=== PATIENT | male | born 1965 | race Caucasian/White ===

== ENCOUNTER 2021-01-31 08:54 | Emergency (ER) | payer SELFPAY ==
[2021-01-31 09:06] VITALS: BP 129/84; PULSE 65; RESP 18; TEMP 36.8; O2SAT 96
--- NOTE | 2021-01-31 09:07 | W.ED.EXTPRO ---
HPI - Extremity Problem General: Chief complaint: Extremity Problem,Nontraumatic Stated complaint: Knee Pain Time Seen by Provider: 01/31/21 08:58 Source: patient Mode of arrival: ambulatory Limitations: no limitations History of Present Illness: HPI Narrative: Patient is a 56-year-old male who presents to ED today for evaluation of right knee pain and swelling. Patient states knee started to bother him approximately 3 to 4 days ago. He thinks maybe he tweaked it . He has no obvious known injury or trauma. He does tell me he has a history of bad knees stating he has arthritis. He has not noticed any redness or warmth to the joint. He has no leg or calf swelling or pain. MD Complaint: joint swelling and joint pain Onset (ago): day(s) Pain Consistency: constant Location: right and knee Quality: constant Radiation: none Relieving factors: immobilization Exacerbating factors: range of motion, weight bearing and walking Associated symptoms: Reports no associated symptoms; Deny chest pain, fever(s) or rash Review of Systems Const: Denies: fever(s), chills or body aches Card: Denies: chest pain Resp: Denies: dyspnea Musc: Reports: joint pain (R knee) and joint swelling (R knee); Denies: neck pain, back pain, extremity pain, extremity swelling, joint redness, joint warmth or muscle weakness Skin/Breast: Denies: rash, erythema or new lesions Neuro: Denies: numbness in extremities or sensory changes [facility] ED PFSH: Medical History (Updated 01/31/21 @ 09:43 by STACY Longo) Erectile dysfunction Mixed hyperlipidemia Social History (Updated 03/06/20 @ 07:58 by Sara Link LPN) Smoking and tobacco status: former smoker Alcohol intake: never Physical Exam Const: COMMON NORMALS: no acute distress, average body habitus, patient oriented x3, no limitations, healthy appearing, alert and well nourished Extremity: COMMON NORMALS: capillary refill normal, no clubbing, cyanosis or edema, no calf tenderness and no pedal edema GENERAL: Yes normal exam except as noted RIGHT LOWER EXTREMITY: Yes knee joint Right knee: Yes inspection (mild effusion noted), Yes palpation (TTP medial joint line), Yes ROM (can fully extend; mildly limited flexion secondary to pain) and Yes neurovascular exam (normal) Neuro: COMMON NORMALS: patient oriented x3, moves all extremities, no focal motor deficits and no sensory deficits noted SENSORIUM/ORIENTATION: Yes alert Skin: COMMON NORMALS: no rashes or lesions noted GENERAL SKIN EXAM: no rashes or lesions noted TRAUMA: no lacerations or abrasions Course Vital Signs: Vital signs: Vital Signs Temperature 98.3 F 01/31/21 09:06 Pulse Rate 65 01/31/21 09:06 Respiratory Rate 18 01/31/21 09:06 Blood Pressure 129/84 01/31/21 09:06 Pulse Oximetry 96 01/31/21 09:06 MDM - Extremity (Nontraumatic) MDM Narrative: Medical decision making narrative: Patient has arthritis and bone spurring to his right knee. There is no large effusion noted. No fracture. No signs of infection. We will treat with RICE therapy, NSAIDs, and steroids. Recommend follow up with PCP in 2 weeks for continued pain. Imaging Data^: XR R knee: Radiologist's impression: [address] [address] XRay Report Signed Patient: Ko Morris Unit #: [id number] : 1965 Age/Sex: 56 / M ADM Date: 01/31/21 Loc: ER Room/Bed: Attending Dr: Ordering Provider/Ordering MD: Isabel Aguilar Date of Service: 01/31/21 Procedure(s): XR knee RT 3V* 00802 Accession Number(s): [id number] Report Number: [id number] WS: [id number] Exam: XR knee RT 3V* [id number] Date/Time of Exam: 01/31/2021 9:12 AM Reason For Exam: pain/swelling Comparison 05/05/2019. No fracture or dislocation. Moderate degenerative thinning of the medial joint compartment. Degenerative changes of the patellofemoral joint. Prominent bone spur projects along the lateral margin of the patella. No joint effusion noted. Normal soft tissues. XR/XR knee RT 3V* [id number] IMPRESSION: 1. Degenerative change of the medial joint compartment and the patellofemoral articulation. Prominent bone spur projecting along the lateral margin of the patella. Similar findings on previous exam. 2. No fracture or joint effusion. Dictated By: David Allen DO Signed By: David Allen DO Signed Date/Time: 01/31/21922 DD/ 8 Discharge Plan Discharge Patient Disposition: Home Clinical Impression: Arthritis of knee, right Condition: Stable Prescriptions: New ibuprofen 800 mg tablet 800 mg PO Q8H PRN (Reason: pain) Qty: 20 RF: 0 acetaminophen-codeine 300-30 mg tablet 1 tab PO Q6H PRN (Reason: pain) Qty: 14 RF: 0 Medrol (Edgardo) 4 mg tablets,dose pack See Rx Instructions .ROUTE .COMPLEX Qty: 21 RF: 0 No Action sildenafil [Viagra] 50 mg tablet 25 mg PO DAILY PRN (Reason: erectile dysfunction) Qty: 30 RF: 1 Discharge Orders: Discharge ED (Routine); Ordered 01/31/21 Ordered By: Isabel Aguilar Patient Instructions: Osteoarthritis (ED), RICE Therapy (ED), Opioid Safety Activity Restrictions/Additional Instructions: [facility] is committed to fighting the nationwide opiate epidemic. We are providing ALL patients with information regarding opiate safety. If you received opiate pain medication during your stay or if you received a prescription for opiate pain medication-please review this handout. If not, you may disregard. Thank you. As we discussed compression therapy, ice, and elevation to help with swelling and discomfort. We will place you on steroids and anti-inflammatory medication as well as a small amount of pain medication to help with discomfort. Please follow-up with a primary care provider in approximately 2 weeks for continued pain. Coding Level of Care Code ED Machinist/Machine Builder for Rojelio Mishra Exam Expanded Problem Focused
--- NOTE | 2021-01-31 09:10 | XR_ITS ---
WS: [id number] Exam: XR knee RT 3V* [id number] Date/Time of Exam: 01/31/2021 9:12 AM Reason For Exam: pain/swelling Comparison 05/05/2019. No fracture or dislocation. Moderate degenerative thinning of the medial joint compartment. Degenerat jennifer changes of the patellofemoral joint. Prominent bone spur projects along the lateral margin of the patella. No joint effusion noted. Normal soft tissues. XR/XR knee RT 3V* [id number] IMPRESSION: 1. Degenerative change of the medial joint compartment and the patellofemoral a rticulation. Prominent bone spur projecting along the lateral margin of the pat edward. Similar findings on previous exam. 2. No fracture or joint effusion.
== END 2021-01-31 10:07 | disposition home or self-care (01) ==
PROVIDERS: Emergency Provider Physician Assistant
DX: M17.11 Unilateral primary osteoarthritis, right knee (principal); E78.2 Mixed hyperlipidemia; Z87.891 Personal history of nicotine dependence
CPT/HCPCS: 73562; 99282

== ENCOUNTER → 2021-03-17 11:28 | Outpatient (BNVA) | payer OTHER, SELFPAY | PROVIDERS: Visit Provider Nurse Practitioner Family | DX: Z20.822 Contact with and (suspected) exposure to COVID-19 (principal) | CPT/HCPCS: 87635 ==

== ENCOUNTER → 2022-10-08 09:07 | Outpatient (BNVA) | payer OTHER, MEDICAID, SELFPAY | PROVIDERS: PCP Family Medicine Adult Medicine; Visit Provider Family Medicine Adult Medicine | DX: R73.03 Prediabetes (principal); N40.1 Benign prostatic hyperplasia with lower urinary tract symptoms; E78.2 Mixed hyperlipidemia | CPT/HCPCS: 80053; 80061; 83036; 84443; 85025 ==

== ENCOUNTER → 2025-01-19 09:02 | Outpatient (BNVA) | payer OTHER, SELFPAY | PROVIDERS: PCP Family Medicine; Visit Provider Family Medicine | DX: Z00.00 Encounter for general adult medical examination without abnormal findings (principal); Z12.5 Encounter for screening for malignant neoplasm of prostate | CPT/HCPCS: 80053; 80061; 84443; 85025; G0103 ==

== ENCOUNTER → 2025-05-18 10:00 | Outpatient (BNVA) | payer OTHER, SELFPAY | PROVIDERS: PCP Family Medicine; Visit Provider Family Medicine | DX: D48.5 Neoplasm of uncertain behavior of skin (principal) | CPT/HCPCS: 88304 ==